=== PATIENT | male | born 1960 | race African-American/Black ===

== ENCOUNTER 2018-04-17 08:47 | Emergency (ER) | payer MEDICARE, MEDICAID ==
[~2018-04-17] VITALS: Ht 190.5 cm; Wt 104.3 kg
[~2018-04-17 08:47] MED LIST: BUPROPION XL300 MG ORAL; DEPAKOTE250 MG PO; GABAPENTIN600 MG ORAL; GLUCOPHAGE500 MG ORAL; NIFEDICAL XL30 MG ORAL
--- NOTE | 2018-04-17 09:09 | Emergency Room Report ---
History of Present Illness General Chief Complaint: Seizure Source: EMS Present Illness HPI This patient says he wants to hurt himself by stabbing himself with a screwdriver. He has no screwdriver with him. He was picked up by the police from the street and placed on a 5150. He is not compliant with his psych meds. Denies hearing voices. +feeling depressed. homeless. Allergies: Coded Allergies: KETOROLAC (Verified Allergy, Intermediate, 03/20/16) Nursing Documentation-PMH Hx Cardiac Problems: No Hx Hypertension: Yes Hx Diabetes: Yes Hx Cancer: No Hx Gastrointestinal Problems: No History Of Psychiatric Problem: Yes Hx Seizures: Yes Hx Spinal Cord Injury: Yes Hx Head Trauma: Yes - 08/2015 Hx Numbness: Yes Hx Weakness: Yes Review of Systems Constitutional: Reports: no symptoms Eye: Reports: no symptoms ENT: Reports: no symptoms Respiratory: Reports: no symptoms Cardiovascular: Reports: no symptoms Gastrointestinal: Reports: no symptoms Genitourinary: Reports: no symptoms Musculoskeletal: Reports: no symptoms Skin: Reports: no symptoms Psychiatric: Reports: no symptoms, see HPI Neurological: Reports: no symptoms Endocrine: Reports: no symptoms Hematologic/Lymphatic: Reports: no symptoms Allergic: Reports: no symptoms All Other Systems: negative except mentioned in HPI Physical Exam Vital Signs Date Time Temp Pulse Resp B/P (MAP) Pulse Ox O2 Delivery O2 Flow Rate FiO2 04/17/18 08:43 98.0 10 20 182/100 97 Room Air 98.1 Sp02 EP Interpretation: reviewed, normal General Appearance: normal inspection, well appearing, no apparent distress, alert, GCS 15, non-toxic Head: normocephalic, atraumatic Eyes: bilateral eye normal inspection, bilateral eye PERRL, bilateral eye EOMI ENT: normal ENT inspection, hearing grossly normal, normal pharynx, no angioedema, normal voice, moist mucus membranes Neck: normal inspection, full range of motion, supple, no meningismus, no bony tend Respiratory: normal inspection, lungs clear, normal breath sounds, no rhonchi, no respiratory distress, no retraction, no accessory muscle use, no wheezing Cardiovascular #1: normal inspection, regular rate, rhythm, no edema Gastrointestinal: normal inspection, normal bowel sounds, non tender, soft, no mass, non-distended Musculoskeletal: gait/station normal, normal range of motion Neurologic: normal inspection, alert, oriented x3, responsive, motor strength/ tone normal Psychiatric: memory normal, no suicidal/homicidal ideation, no delusions, other - normal affect Suicide Risk Assessment: Suicidal Ideation: No Had intent to initiate attempt: No Pt's plan for suicide attempt: No Has means to complete attempt: No Skin: normal inspection, normal color, no rash, warm/dry Medical Decision Making Behavioral: Schizophrenia Diagnostic Impression: Primary Impression: Polysubstance abuse ER Course The patient is not suicidal. Will order usual labs and request Dr. Jara to consult; anticipate release 5150. U tox noted louis, amphetamine, cocaine. Pt. continues to be cooperative, pending Dr. Jara evaluation. Re-evaluation. Requests lunch. Ok for d/c. Last Vital Signs Date Time Temp Pulse Resp B/P (MAP) Pulse Ox O2 Delivery O2 Flow Rate FiO2 04/17/18 08:43 98.0 10 20 182/100 97 Room Air 98.1 Disposition: HOME, SELF-CARE Condition: Stable Michael Santacruz M.D. Apr 17, 2018 09:09
[2018-04-17 09:38] VITALS: BP 143/94
[2018-04-17 09:43] LABS: BASOPHILS % (AUTO) 1.1 % (0.0-2.0); EOSINOPHILS % (AUTO) 2.6 % (0.0-3.0); HEMATOCRIT 41.2 % (42.0-52.0); HEMOGLOBIN 13.7 G/DL (14.2-18.0); LYMPHOCYTES % (AUTO) 27.7 % (20.0-45.0); MEAN CORPUSCULAR VOLUME 92 FL (80-99); MONOCYTES % (AUTO) 12.6 % (1.0-10.0); PLATELET COUNT 344 K/UL (150-450); RED BLOOD COUNT 4.47 M/UL (4.70-6.10); WHITE BLOOD COUNT 4.1 K/UL (4.8-10.8)
[2018-04-17] MEDS ORDERED: Depakote 500mg tab ORAL ONE (09:45)
[2018-04-17 09:58] LABS: ANION GAP 6 mmol/L (5-15); BLOOD UREA NITROGEN 10 mg/dL (7-18); CALCIUM 9.4 MG/DL (8.5-10.1); CARBON DIOXIDE 26 MMOL/L (21-32); CHLORIDE 103 MMOL/L (98-107); POTASSIUM 3.5 MMOL/L (3.5-5.1); SODIUM 135 MMOL/L (136-145)
[2018-04-17 10:03] LABS: ALANINE AMINOTRANSFERASE 115 U/L (12-78); ALBUMIN 3.6 G/DL (3.4-5.0); ALBUMIN/GLOBULIN RATIO 0.9 (1.0-2.7); ALKALINE PHOSPHATASE 101 U/L (46-116); ASPARTATE AMINO TRANSFERASE 33 U/L (15-37); BILIRUBIN,TOTAL 0.3 MG/DL (0.2-1.0)
[2018-04-17 12:09] VITALS: BP 125/54
[2018-04-17 14:31] VITALS: BP 147/86
[2018-04-18] MEDS ORDERED: PHENOBARBITAL30 MG ORAL (05:58)
[2018-04-18] MEDS ORDERED: DILANTIN100 MG ORAL (05:58)
== END 2018-04-17 14:31 | disposition home or self-care (01) ==
LOC: EDBD 08:47 → EMR 09:15
DX: F19.10 Other psychoactive substance abuse, uncomplicated (principal); F20.9 Schizophrenia, unspecified; I10 Essential (primary) hypertension; E11.9 Type 2 diabetes mellitus without complications
CPT/HCPCS: 36415; 80053; 80164; 80307; 85025; 99284

== ENCOUNTER 2018-04-18 05:19 | Emergency (ER) | payer MEDICARE, MEDICAID ==
[~2018-04-18] VITALS: Ht 185.4 cm; Wt 108.9 kg
[2018-04-18 05:25] VITALS: BP 161/101
[2018-04-18] MEDS ORDERED: DILANTIN100 MG ORAL (05:58)
[2018-04-18] MEDS ORDERED: PHENOBARBITAL30 MG ORAL (05:58)
--- NOTE | 2018-04-18 06:12 | Emergency Room Report ---
History of Present Illness General Chief Complaint: Behavioral Complaint Source: Patient Present Illness HPI Patient was brought in by police department on a 5150 it was reported that the patient reported suicidal thought Patient was going to cut himself with a knife patient reports History of bipolar and schizophrenia Reports previous suicidal attempts at this time denies any chest pain or short of breath denies any back or flank pain Allergies: Coded Allergies: KETOROLAC (Verified Allergy, Intermediate, 03/20/16) Patient History Past Medical History: see triage record Pertinent Family History: none Reviewed Nursing Documentation: PMH: Agreed; PSxH: Agreed Nursing Documentation-PMH Past Medical History: No History, Except For Hx Cardiac Problems: No Hx Hypertension: Yes Hx Diabetes: Yes Hx Cancer: No Hx Gastrointestinal Problems: No Hx Seizures: Yes Hx Spinal Cord Injury: Yes Hx Head Trauma: Yes - 08/2015 Hx Numbness: Yes Hx Weakness: Yes Review of Systems All Other Systems: negative except mentioned in HPI Physical Exam Vital Signs Date Time Temp Pulse Resp B/P (MAP) Pulse Ox O2 Delivery O2 Flow Rate FiO2 04/18/18 05:17 98.1 87 16 147/89 98 Room Air 98.1 Sp02 EP Interpretation: reviewed, normal General Appearance: well appearing, no apparent distress Head: normocephalic, atraumatic Eyes: bilateral eye PERRL, bilateral eye EOMI ENT: hearing grossly normal, normal pharynx, TMs + canals normal, uvula midline Neck: full range of motion, supple, no meningismus, no bony tend Respiratory: lungs clear, normal breath sounds, no rhonchi, no respiratory distress, no retraction, no accessory muscle use Cardiovascular #1: normal peripheral pulses, regular rate, rhythm, no edema, no gallop, no JVD, no murmur Gastrointestinal: normal bowel sounds, non tender, soft, no mass, no organomegaly, non-distended, no guarding, no hernia, no pulsatile mass, no rebound Genitourinary: no CVA tenderness Musculoskeletal: normal inspection Neurologic: oriented x3, responsive, insurance coder III-XII nml as tested, motor strength/ tone normal, sensory intact Psychiatric: other - Suicidal ideation Skin: normal color, no rash, warm/dry, palpation normal Lymphatic: normal inspection, no adenopathy Medical Decision Making ER Course Given the patient's history exam and presentation patient has further blood work obtained to medically clear the patient And is handed off to my oncoming physician Last Vital Signs Date Time Temp Pulse Resp B/P (MAP) Pulse Ox O2 Delivery O2 Flow Rate FiO2 04/18/18 05:17 98.1 87 16 147/89 98 Room Air 98.1 Status: improved Signed Out To: on coming physician Referrals: NOT CHOSEN IPA/,REFERRING (PCP) Dustin Dill DO Apr 18, 2018 06:12
[2018-04-18 06:46] LABS: APPEARANCE,URINE CLEAR; BILIRUBIN, URINE NEGATIVE (NEGATIVE); GLUCOSE, URINE (UA) NEGATIVE (NEGATIVE); KETONES,URINE NEGATIVE (NEGATIVE); LEUKOCYTE ESTERASE ,URINE 1+ (NEGATIVE); NITRITE,URINE NEGATIVE (NEGATIVE); PH,URINE 6 (4.5-8.0); PROTEIN,URINE 2+ (NEGATIVE); UROBILINOGEN,URINE NORMAL MG/DL (0.0-1.0)
[2018-04-18 06:54] LABS: COLOR,URINE YELLOW
[2018-04-18 06:57] LABS: BASOPHILS % (AUTO) 0.8 % (0.0-2.0); EOSINOPHILS % (AUTO) 1.2 % (0.0-3.0); HEMATOCRIT 39.7 % (42.0-52.0); HEMOGLOBIN 13.6 G/DL (14.2-18.0); LYMPHOCYTES % (AUTO) 28.5 % (20.0-45.0); MEAN CORPUSCULAR VOLUME 93 FL (80-99); NEUTROPHILS % (AUTO) 59.5 % (45.0-75.0); PLATELET COUNT 334 K/UL (150-450); RED BLOOD COUNT 4.28 M/UL (4.70-6.10); RED CELL DISTRIBUTION WIDTH 11.9 % (11.6-14.8); WHITE BLOOD COUNT 5.2 K/UL (4.8-10.8)
[2018-04-18 07:07] LABS: ANION GAP 9 mmol/L (5-15); BLOOD UREA NITROGEN 14 mg/dL (7-18); CALCIUM 9.4 MG/DL (8.5-10.1); CARBON DIOXIDE 25 MMOL/L (21-32); CHLORIDE 102 MMOL/L (98-107); POTASSIUM 3.7 MMOL/L (3.5-5.1); SODIUM 136 MMOL/L (136-145)
[2018-04-18 07:14] LABS: ALANINE AMINOTRANSFERASE 97 U/L (12-78); ALBUMIN 3.5 G/DL (3.4-5.0); ALBUMIN/GLOBULIN RATIO 0.8 (1.0-2.7); ALKALINE PHOSPHATASE 101 U/L (46-116); ASPARTATE AMINO TRANSFERASE 37 U/L (15-37); BILIRUBIN,TOTAL 0.3 MG/DL (0.2-1.0)
[2018-04-18 09:11] VITALS: BP 132/69
[2018-04-18 12:55] VITALS: BP 128/72
--- NOTE | 2018-04-18 20:15 | Consultation ---
DATE OF CONSULTATION: 04/18/2018 CONSULTING PHYSICIAN: Wilder Jara M.D. HISTORY OF PRESENT ILLNESS: The patient is a 58-year-old male, who came to the ER yesterday, was discharged after a psychiatric evaluation. His urine tox was positive for cocaine and methamphetamine. He stated that he was having suicidal ideation yesterday and today. The patient is not endorsing any psychotic or manic symptoms. The patient is not presenting with any behavior that indicates he has an imminent danger to self or others. The patient has a long history of substance use disorder. It appears that he is using his monthly income on drugs and stated he depleted his resources. He comes to the emergency room presents with suicidal ideation. PAST PSYCHIATRIC HISTORY: He has an extensive history of substance use disorder. He has several psychiatric hospitalizations at [facility] and other psychiatric facility. He is well known to this physician. PAST MEDICAL HISTORY: Metabolic syndrome, mild hypertension. He is overweight. ALLERGIES: No known drug allergies. SUBSTANCE ABUSE HISTORY: Extensive including meths, cocaine crack, alcohol, marijuana, prescription . MENTAL STATUS EXAMINATION: The patient is alert and oriented times self, place, and situation. Mood is dysphoric. Affect is constricted. Congruent with mood. Thought process is concrete. Thought content, no suicidal or homicidal ideation. No psychotic symptoms. ASSESSMENT: Emigrant I Substance abuse. Emigrant II Deferred. Emigrant III As above. Emigrant IV Low. Emigrant V 50. PLAN: The patient hold will be discontinued. He will be discharged to lower level of care. He is not an imminent danger to self or others. He is not motivated to stop using drugs. Discussed with the ER physician. Wilder Jara M.D. DR: VAN JOB#: [id number] CC:
--- NOTE | 2018-04-18 20:45 | Consultation ---
DATE OF CONSULTATION: 04/17/2018 HISTORY OF PRESENT ILLNESS: The patient is a 58-year-old male, who was brought in on a 5150 for danger to others. The patient's system is positive for drugs including coke and alcohol. The patient stated that he wants to kill himself after being discharged from the hospital. patient is well known to this physician. The patient has chronic substance use disorder and has a long history of using drugs and not following with outpatient substance use disorder specialist. PAST PSYCHIATRIC HISTORY: He had several psychiatric hospitalizations with similar presentation. PAST MEDICAL HISTORY: Metabolic syndrome. ALLERGIES: No known drug allergies. MENTAL STATUS EXAMINATION: Alert and oriented times self, place, and situation. Mood is dysphoric. Affect is constricted. Congruent mood. Thought process is concrete. Thought content, no suicidal or homicidal ideations. ASSESSMENT: Sanford I Polysubstance dependence. Sanford II Deferred. Sanford III As above. Sanford IV Low. Sanford V 50. PLAN: 1. The patient hold will be discontinued. 2. He will be discharged to a lower level of care as he is not an imminent danger to self or others. Wilder Jara M.D. DR: KAIDEN JOB#: [id number] CC:
== END 2018-04-18 12:55 | disposition home or self-care (01) ==
LOC: EDBD 05:19 → EMR 05:30
DX: F19.10 Other psychoactive substance abuse, uncomplicated (principal); F32.9 Major depressive disorder, single episode, unspecified; E11.9 Type 2 diabetes mellitus without complications; I10 Essential (primary) hypertension; Z91.5 Personal history of self-harm
CPT/HCPCS: 36415; 80053; 80184; 80185; 80307; 81003; 85025; 99284; G0480; 80329